=== PATIENT | female | born 1960 | race Caucasian/White ===

== ENCOUNTER → 2017-03-11 | Outpatient (CLI) | payer OTHER ==
[~2017-03-11] MED LIST: ADVIN25/60 INH; ALBINS/ INH; ALBU0.08 INH; B-CO-25 PO; CLIN1GEL TOP; DICY10CA12 PO; DICY10CA55 PO; DOCU-94 PO; FLUO20CA35 PO; FLUO40CA8 PO; FLUT0.15 NAE; FSMD/70 PO; FURO-85 PO; GABA800T PO; IPRA1AER2 INH; LINA1CAP PO; LORA-741 PO; METH-445 PO; MONT1TAB5 PO; MULT-506 PO; OXYC1TAB PO; OXYC20TA32 PO; PRLSR20 PO; RIZA10TA18 PO; SIMV20TA2 PO; TOPI100T20 PO; TRMCR130WC TOP
--- NOTE | 2017-03-12 13:46 | MAMMOGRAPHY REPORT ---
BILATERAL DIGITAL DIAGNOSTIC MAMMOGRAM TOMOSYNTHESIS WITH CAD AND TARGETED LEFT ULTRASOUND: 7 CLINICAL HISTORY: 57-year-old woman with a family history of breast cancer presents for bilateral scr eening mammography. She has a strong family history of breast cancer = maternal great grandmother, m aternal grandmother, 2 maternal aunts. She also has a history of dense breasts and reports the lump in the lower outer quadrant of the left breast today. Also reports diffuse bilateral breast tenderne ss. TECHNIQUE: Bilateral breast tomosynthesis in addition to standard 2D mammography was performed. Curre nt study was also evaluated with a Computer Aided Detection (CAD) system. COMPARISON: Comparison is made to exams dated: 01/02/2016 breast MRI, 11/30/2013 mammogram, 10/16/2011 mammogram, 10/08/2010 mammogram - [facility], 01/25/2008, and 08/22/2005 mammogram - [facility]. BREAST COMPOSITION: The tissue of both breasts is extremely dense, which lowers the sensitivity of m ammography. FINDINGS: There is an asymmetry in the superior posterior right breast on the MLO view that effaces o n the corresponding tomosynthesis images and also appears very similar to the 10/08/2010 mammograms, most likely normal overlapping tissue. There are a few punctate scattered benign-appearing microcalc ifications, stable in each breast. No suspicious mass, architectural distortion, asymmetry or cluste r of suspicious microcalcifications is seen. Targeted ultrasound was performed in the 4:00 left breast, 4 cm from the nipple, in the area of lump pointed out by the patient. On palpation, there is a soft superficial mobile mass. On ultrasound, s onographically normal tissue is seen without a discrete solid or cystic mass. IMPRESSION: ACR BI-RADS CATEGORY 2: BENIGN, TARGETED ULTRASOUND ACR BI-RADS CATEGORY 2: BENIGN 1. There is no mammographic evidence of malignancy in the breasts. 2. No targeted sonographic evidence of malignancy in the area of palpable concern pointed out by the patient, within the 4:00 left breast. 3. Given the strong family history of breast cancer and extremely dense breasts, consider additional screening with breast MRI if the patient's lifetime risk for developing breast cancer is at least 20 %. These results and recommendations were discussed with the patient at the time of the exam. Approximately 10% of breast cancers are not detected with mammography. A negative mammographic report should not delay biopsy if a clinically suggestive mass is present. Marilou Rios M.D. ay/:03/11/2017 14:57:36 Environmental Quality Analyst: Adrianna TALBERT)([place]), [facility] letter sent: Normal 1/2 BI-RADS Code: ACR BI-RADS Category 2: Benign Ultrasound BI-RADS: ACR BI-RADS Category 2: Benign
== END | disposition home or self-care (01) ==
LOC: C.MAMM 13:35
PROVIDERS: ATTEND Family Medicine
DX: R92.8 Other abnormal and inconclusive findings on diagnostic imaging of breast (principal)

== ENCOUNTER → 2017-03-19 | Outpatient (CLI) | payer OTHER | END | disposition home or self-care (01) | LOC: C.MAMM 13:46 | PROVIDERS: ATTEND Family Medicine | DX: M85.89 Other specified disorders of bone density and structure, multiple sites (principal); M81.0 Age-related osteoporosis without current pathological fracture ==

== ENCOUNTER → 2017-09-21 | Outpatient (CLI) | payer OTHER ==
[~2017-09-21] MED LIST changes: -ALBU0.08 INH; -B-CO-25 PO; -DICY10CA12 PO; -DOCU-94 PO; -FLUO20CA35 PO; -LINA1CAP PO; -METH-445 PO; +METH500T37 PO; -MONT1TAB5 PO; -OXYC1TAB PO
--- NOTE | 2017-09-22 09:50 | EEG Procedure Note ---
EEG Procedure Note Date of Service Sep 22, 2017. Start / End Times Start Time: 0126 End Time: [address] Ashraf History 57-year-old with a history of shaking and seizure-like episodes. Home Medication List Scheduled Alendronate/Cholecalciferol (Fosamax+D 70MG/2800 Iu), 1 TABLET PO WK Clindamycin Phosphate (Topical (Cleocin-T), 1 APPLN TOP BID Fluoxetine (Prozac), 40 MG PO DAILY Fluticasone Prop/Salmeterol (Advair Diskus 250/50 60 Dose), 1 PUFFS INH BID Fluticasone Propionate (Nasal) (Flonase Allergy Relief), 2 SPRAY DELVIN QPM Gabapentin (Neurontin), 800 MG PO 5XD Multivitamin (Multivitamin), 1 TAB PO QAM Omeprazole (Prilosec), 20 MG PO BID Simvastatin (Zocor), 20 MG PO QPM Topiramate (Topamax), 100 MG PO HS Triamcinolone Acet (Aristocort 0.1%), 1 APPLN TOP BID Scheduled PRN Albuterol Sulf (Proventil 0.083% 2.5MG/3ML), 2.5 MG INH QID PRN for SOB/Wheezing Dicyclomine Hcl (Bentyl), 10 MG PO UD PRN for Furosemide (Lasix), 1 TAB PO DAILY PRN for LEG SWELLLING/WEIGHT GAIN Ipratropium-Albuterol (Combivent Respimat), 1 PUFFS INH QID PRN for Shortness of Breath Lorazepam (Ativan), 0.5 MG PO BID PRN for Anxiety Methocarbamol (Robaxin), 500 MG PO TID PRN for Muscle Spasms Oxycodone Hcl (Oxycodone Hcl), 20 MG PO 5XD PRN for Pain Rizatriptan Benzoate (Maxalt), 10 MG PO DIRECTED PRN for Migraine Description This is a 21 electrode EEG with a single channel dedicated to limited EKG. The electrodes were placed in accordance with the International 10-20 system. Interpretation The predominant background activity consists of a somewhat irregular 10 hertz activity of up to 20-30 microvolts in amplitude, seen symmetrically distributed over the posterior head region spreading anteriorly bilaterally.. This activity attenuates some with eye opening and other alerting procedures. Photic stimulation performed and elicited no change in the background activity and no abnormal responses were noted. Hyperventilation was not performed. There were some T5 electrode artifact initially but this was corrected. There was some mild muscle and movement artifact activity from time to time but this did not hinder interpretation to any significant degree. Throughout the waking portion according no focal abnormalities or potentially epileptogenic discharges were seen. Patient id to the drowsy state and brief periods of stage 2 sleep without further activation. In summary this study is normal during wakefulness and sleep. No focal abnormalities were noted no potentially epileptic discharges were seen. Clinical Correlation The absence of potentially epileptogenic discharges does not exclude a seizure disorder since inter ictally EEGs can be normal in clinical correlation is required.
== END | disposition home or self-care (01) ==
LOC: C.NEUR 12:56
PROVIDERS: ATTEND Family Medicine
DX: R56.9 Unspecified convulsions (principal)